=== PATIENT | male | born 1945 | race Caucasian/White ===

== ENCOUNTER 2019-01-07 15:40 | Inpatient (IN) | payer MEDICARE, BC ==
[~2019-01-07] VITALS: Ht 170.2 cm; Wt 74.3 kg
[~2019-01-07 15:40] MED LIST: LISI5 PO; NEBI5 PO; Vitamin C60 MG PO
[2019-01-07] MEDS ORDERED: SERT50 PO (16:38)
[2019-01-07] MEDS ORDERED: Hydrocodone-Ap1 EA20 PO (16:38)
[2019-01-07] MEDS ORDERED: ATOR80 PO (16:39)
[2019-01-07] MEDS ORDERED: METOPROLOL SUCC25 MG PO (16:39)
[2019-01-07] MEDS ORDERED: RANOLAZINE ER1000 MG PO (16:40)
[2019-01-07] MEDS ORDERED: ALLO100 PO (16:41)
[2019-01-07 17:44] LABS: BASOPHILS ABSOLUTE AUTO 0.02 K/mm3 (0.00-0.23); BASOPHILS PERCENT AUTO 0 % (0-2); EOSINOPHILS ABSOLUTE AUTO 0.02 K/mm3 (0.00-0.68); EOSINOPHILS PERCENT AUTO 0 % (0-6); Hematocrit 33.2 % (37.0-53.0); IMMATURE GRAN ABSOLUTE AUTO 0.06 K/mm3 (0.00-0.10); IMMATURE GRAN PERCENT AUTO 1 % (0-1); LYMPHOCYTES ABSOLUTE AUTO 0.85 K/mm3 (0.84-5.20); LYMPHOCYTES PERCENT AUTO 12 % (21-46); MONOCYTES PERCENT AUTO 8 % (4-13); Mean Corpuscular HGB 32.9 pg (26.0-34.0); Mean Corpuscular HGB Conc 33.1 g/dL (31.5-36.5); Mean Corpuscular Volume 99 fL (80-100); Mean Platelet Volume 10.6 fL (9.1-12.4); NEUTROPHILS ABSOLUTE AUTO 5.76 K/mm3 (1.96-9.15); NEUTROPHILS PERCENT AUTO 79 % (41-73); Platelet Count 174 K/mm3 (150-400); RDW Coefficient Variation 13.6 % (11.7-14.2); RDW Standard Deviation 49.1 fL (35.1-46.3); Red Blood Cell Count 3.34 M/mm3 (4.30-5.90); White Blood Cell Count 7.31 K/mm3 (4.00-11.30)
[2019-01-07] MEDS ORDERED: OMEP20ER PO (17:48)
[2019-01-07] MEDS ORDERED: ASPI325 PO (17:48)
[2019-01-07] MEDS ORDERED: ASCO500 PO (17:49)
[2019-01-07] MEDS ORDERED: MAGNESIUM250 MG PO (17:52)
[2019-01-07] MEDS ORDERED: Elemental Calc600 MG PO (17:52)
[2019-01-07] MEDS ORDERED: THERA1 EACH PO (17:53)
[2019-01-07 17:59] LABS: International Normalized Ratio 1.07; Prothrombin Time Results 11.3 Sec (9.7-11.5)
[2019-01-07 18:12] LABS: Alanine Aminotransfer (ALT/SGP 28 U/L (12-78); Albumin, Blood 3.5 g/dL (3.4-5.0); Albumin/Globulin Ratio 1.2 (0.8-1.8); Alk Phos 90 U/L (50-136); Anion Gap 7 mmol/L (6-16); Aspartate Aminotrans (AST/SGOT 29 U/L (12-37); Bilirubin, Total 0.9 mg/dL (0.1-1.0); Blood Urea Nitrogen 16 mg/dL (8-24); Bun/Creatinine Ratio 14.2 (12.0-20.0); CO2, Blood 29 mmol/L (21-32); Calcium, Blood 9.2 mg/dL (8.5-10.1); Chloride, Blood 101 mmol/L (98-108); Creatinine, Blood 1.13 mg/dL (0.60-1.20); Globulin, Blood 2.8 g/dL (2.2-4.0); Glomerular Filtration Rate >60 (60-); Glucose, Blood 132 mg/dL (70-99); Potassium, Blood 4.1 mmol/L (3.5-5.5); Sodium, Blood 137 mmol/L (136-145); Total Protein, Blood 6.3 g/dL (6.4-8.2)
--- NOTE | 2019-01-07 19:10 | NUR ---
ADMIT NOTE RECEIVED REPORT FROM TITA PINEDA RN IN ED. PT TO ROOM AT 1835, SBA TRANSFER TO BED, PT SLIGHTLY UNSTEADY ON FEET. REPORTS HE RECENTLY FELL AT HOME. PT ORIENTED TO ROOM AND CALL LIGHT. EDUCATED ON FALL RISK AND TO USE CALL LIGHT PRIOR TO GETTING OUT OF BED. BED ALARM IN PLACE, BED IN LOW AND CALL LIGHT WITHIN REACH. PT A&Ox4. CALM AND COOPERATIVE WITH CARE. PT DENIES PAIN, CHEST PAIN OR DISCOMFORT, SOB, NAUSEA, DIZZINESS, NUM/TING. PT HAS NITRO PASTE/PATCH IN LEFT UPPER CHEST AND HEPARIN GOING WHICH PER PT WAS STARTED AT [facility], HEPARIN CHANGED OVER PER EMAR/ORDERS. TELE NSR/'S. VSS. NO OTHER ACUTE CHANGES NOTED. REPORT GIVEN TO ONCOMING RN.
[2019-01-07] MEDS ORDERED: Prinivil10 MG PO (20:57)
[2019-01-07] MEDS ORDERED: Isosorbide Mono30 MG PO (20:58)
[2019-01-07] MEDS ORDERED: PANT40 PO (20:59)
[2019-01-07] MEDS ORDERED: CELE100 PO (20:59)
[2019-01-07] MEDS ORDERED: NITR.4SL (21:00)
[2019-01-07] MEDS ORDERED: EPIPEN 2-P0.3 MG/0.3 (21:01)
[2019-01-07] MEDS ORDERED: RANO500T PO (21:03)
[2019-01-08 01:05] LABS: BASOPHILS ABSOLUTE AUTO 0.02 K/mm3 (0.00-0.23); BASOPHILS PERCENT AUTO 0 % (0-2); EOSINOPHILS ABSOLUTE AUTO 0.06 K/mm3 (0.00-0.68); EOSINOPHILS PERCENT AUTO 1 % (0-6); Hematocrit 32.6 % (37.0-53.0); Hemoglobin 10.7 g/dL (13.5-17.5); IMMATURE GRAN ABSOLUTE AUTO 0.04 K/mm3 (0.00-0.10); IMMATURE GRAN PERCENT AUTO 1 % (0-1); LYMPHOCYTES ABSOLUTE AUTO 0.76 K/mm3 (0.84-5.20); LYMPHOCYTES PERCENT AUTO 11 % (21-46); MONOCYTES ABSOLUTE AUTO 0.63 K/mm3 (0.16-1.47); MONOCYTES PERCENT AUTO 9 % (4-13); Mean Corpuscular HGB 32.2 pg (26.0-34.0); Mean Corpuscular HGB Conc 32.8 g/dL (31.5-36.5); Mean Corpuscular Volume 98 fL (80-100); Mean Platelet Volume 10.6 fL (9.1-12.4); NEUTROPHILS ABSOLUTE AUTO 5.66 K/mm3 (1.96-9.15); NEUTROPHILS PERCENT AUTO 79 % (41-73); Platelet Count 165 K/mm3 (150-400); RDW Coefficient Variation 13.7 % (11.7-14.2); RDW Standard Deviation 48.8 fL (35.1-46.3); Red Blood Cell Count 3.32 M/mm3 (4.30-5.90); White Blood Cell Count 7.17 K/mm3 (4.00-11.30)
[2019-01-08 01:21] LABS: Anion Gap 8 mmol/L (6-16); Blood Urea Nitrogen 16 mg/dL (8-24); Bun/Creatinine Ratio 14.3 (12.0-20.0); CO2, Blood 28 mmol/L (21-32); Calcium, Blood 8.8 mg/dL (8.5-10.1); Chloride, Blood 102 mmol/L (98-108); Creatinine, Blood 1.12 mg/dL (0.60-1.20); Glomerular Filtration Rate >60 (60-); Glucose, Blood 130 mg/dL (70-99); Potassium, Blood 3.8 mmol/L (3.5-5.5); Sodium, Blood 138 mmol/L (136-145)
--- NOTE | 2019-01-08 04:45 | NUR ---
SHIFT SUMMARY: PATIENT SLEPT WELL THIS SHIFT AFTER AMBIEN PER MD ORDERS. VSS, CALL LIGHT WITHIN REACH, BED LOW AND LOCKED AND PATIENT COMPLIANT WITH CARE.
--- NOTE | 2019-01-08 07:17 | NUR ---
Heparin Drip verified at the bedside compared with eMAR with Gayathri Silvestre RN. Pt denies chest discomfort, or other pain/discomfort. Sitting up in bed, no evidence of distress, dyspnea, anxiety or pain.
--- NOTE | 2019-01-08 10:12 | NUR ---
titration of heparin dose at this time.
--- NOTE | 2019-01-08 12:05 | NUR ---
the pt returned from the lab[employer], report was received from [address]. Vital signs are stable, and left TR band site appears without any bleeding, bruising, swelling, or hematoma. The distal pulse is palpable, and spo2 measured on the index finger of the left hand is 92%, compared with 97% on the right. The pt is a bit sleepy. Respirations are even and unlabored, and he has no complaints of pain. The pt verbalized understanding of not using the left arm for anything at this time. White immobilizer board is in place.
--- NOTE | 2019-01-08 14:38 | NUR ---
2 cc of air deflated from the TR band. With each vital sign check recorded the arm was verified and assesed that there was no bleeding, bruising, hematoma, swelling or pain. The pt states it feels fine, and the site remains unchanged from prior assessments.
--- NOTE | 2019-01-08 15:06 | NUR ---
total of 5 cc of air has been removed so far, with no change to the left radial artery access site.
[2019-01-08] MEDS ORDERED: ASPI81CH PO (15:55)
[2019-01-08] MEDS ORDERED: CLOP75 PO (15:56)
== END 2019-01-08 17:10 | disposition home or self-care (01) | DRG 282 ==
LOC: ER 15:40 → PCU 15:41
PROVIDERS: Emergency Medicine; ADMIT Internal Medicine
PROC: B2111ZZ Fluoroscopy of Multiple Coronary Arteries using Low Osmolar Contrast (ICD-10-PCS; principal; 2019-01-08)
DX: I21.4 Non-ST elevation (NSTEMI) myocardial infarction (principal); I25.10 Atherosclerotic heart disease of native coronary artery without angina pectoris; I73.9 Peripheral vascular disease, unspecified; E78.5 Hyperlipidemia, unspecified; I10 Essential (primary) hypertension; F32.9 Major depressive disorder, single episode, unspecified; I65.29 Occlusion and stenosis of unspecified carotid artery; I71.4 Abdominal aortic aneurysm, without rupture; M10.9 Gout, unspecified; Z95.5 Presence of coronary angioplasty implant and graft; Z95.1 Presence of aortocoronary bypass graft; Z87.891 Personal history of nicotine dependence; Z79.82 Long term (current) use of aspirin; Z79.899 Other long term (current) drug therapy
CPT/HCPCS: 36415; 80048; 80053; 84484; 85025; 85610; 85730; 93005; 93010; 93306; 93455; 96374; 96376; 99152; 99153; 99285-25; C1769; C1894; G0378; J1644; J2250; J3010; J7030; Q9967

== ENCOUNTER 2022-03-29 23:47 | Inpatient (IN) | payer BC ==
[~2022-03-29] VITALS: Wt 60.5 kg
[~2022-03-29 23:47] MED LIST changes: +ALLO100 PO; +ASCO500 PO; +ASPI325 PO; +ASPI81CH PO; +ATOR80 PO; +CELE100 PO; +CLOP75 PO; +EPIPEN 2-P0.3 MG/0.3; +Elemental Calc600 MG PO; +Hydrocodone-Ap1 EA20 PO; +Isosorbide Mono30 MG PO; +MAGNESIUM250 MG PO; +METOPROLOL SUCC25 MG PO; +NITR.4SL; +OMEP20ER PO; +PANT40 PO; +Prinivil10 MG PO; +RANO500T PO; +RANOLAZINE ER500 M2 PO; +SERT50 PO; +THERA1 EACH PO
[2022-03-30 05:39] LABS: Base Excess Venous -0.6 mmol/L; Bicarbonate Venous 22.9 mmol/L (24.0-30.0); PCO2 Venous 39.9 mmHg (38-42); pH Blood Venous 7.39 (7.34-7.37)
[2022-03-30 05:50] LABS: BASOPHILS ABSOLUTE AUTO 0.03 K/mm3 (0.00-0.23); BASOPHILS PERCENT AUTO 0 % (0-2); EOSINOPHILS ABSOLUTE AUTO 0.16 K/mm3 (0.00-0.68); EOSINOPHILS PERCENT AUTO 1 % (0-6); Hematocrit 34.1 % (37.0-53.0); Hemoglobin 10.9 g/dL (13.5-17.5); IMMATURE GRAN ABSOLUTE AUTO 0.03 K/mm3 (0.00-0.10); IMMATURE GRAN PERCENT AUTO 0 % (0-1); LYMPHOCYTES ABSOLUTE AUTO 0.54 K/mm3 (0.84-5.20); LYMPHOCYTES PERCENT AUTO 5 % (21-46); MONOCYTES ABSOLUTE AUTO 0.92 K/mm3 (0.16-1.47); MONOCYTES PERCENT AUTO 8 % (4-13); Mean Corpuscular Volume 94 fL (80-100); Mean Platelet Volume 10.9 fL (9.1-12.4); NEUTROPHILS ABSOLUTE AUTO 10.26 K/mm3 (1.96-9.15); NEUTROPHILS PERCENT AUTO 86 % (41-73); Platelet Count 223 K/mm3 (150-400); RDW Coefficient Variation 13.6 % (11.7-14.2); RDW Standard Deviation 47.3 fL (35.1-46.3); Red Blood Cell Count 3.63 M/mm3 (4.30-5.90); White Blood Cell Count 11.94 K/mm3 (4.00-11.30)
[2022-03-30 06:38] LABS: Albumin, Blood 3.6 g/dL (3.4-5.0); Albumin/Globulin Ratio 1.2 (0.8-1.8); Bilirubin, Total 0.7 mg/dL (0.1-1.0); Bun/Creatinine Ratio 13.8 (12.0-20.0); Calcium, Blood 8.8 mg/dL (8.5-10.1); Creatinine, Blood 1.23 mg/dL (0.60-1.20); Globulin, Blood 2.9 g/dL (2.2-4.0); Potassium, Blood 3.4 mmol/L (3.5-5.5); Thyroid Stimulating Hormone 2.24 uIU/mL (0.360-4.800); Total Protein, Blood 6.5 g/dL (6.4-8.2)
--- NOTE | 2022-03-30 06:42 | NUR ---
SHIFT SUMMARY PT WAS A DIRECT ADMIT FROM [place] FOR CHF AND RESP FAILURE. ON ARRIVAL THE PT WAS FAIRLY SOMULENT AND WAS NOT ABLE TO ANSWER HX QUESTIONS. HE IS ON THE BIPAP W/ SP02 > 95%, AND HIS HR IS 90'S-110'S AFIB. A BEDSIDE SWALLOW EVALUATION WAS DONE, AND THE PATIENT BEGAN COUGHING AFTER THE EVALUATION. WHEN AYLIN DEVINE ASKED IF IS WENT DOWN THE WRONG PIPE, HE STATED "SOMETHING DID" WHILE COUGHING. NOTIFIED AND A SPEECH EVALUATION WAS ORDERED. PT HAS BED IN LOW, THREE SIDE RAILS UP, AND HAS CALL LIGHT IN REACH. WILL CONTINUE TO MONITOR UNTIL SHIFT REPORT IS GIVEN TO THE ONCOMING SHIFT RN. SEE NOTES FOR ANY UPDATES.
--- NOTE | 2022-03-30 18:33 | NUR ---
END OF SHIFT SUMMARY A/O X2. PT IS VERY HARD TO UNDERSTAND DUE TO SLURRED SPEACH. NPO STATUS HELD ALL DAY EXCEPT FOR MEDICATIONS IN APPLESAUCE DUE TO FAILED SWALLOW TESTING. THIN LIQUIDS SPECIFICALLY. PT HAS WET COURSE SOUNDING LUNGS WITH CONGESTION HEARD STANDING AT BEDSIDE. O2 SATS AT 97 ON NC 4L. ORAL CARE ATTEMPTED SEVERAL TIMES TODAY BEFORE MEDICATIONS GIVEN. PT SPOUSE REPORTS THAT PT HAS LOST AROUND 10 LBS OVER A MONTH TIME DUE TO POOR APPETITE. PT IS UNABLE TO STAND FOR SHORT PERIODS OF TIME. BASELINE AT HOME IS TRANSFERS FROM WHEELCHAIR TO BED, CHAIR, TOILET, ETC. PT SLEPT MOST OF THE DAY AND STATES THAT HE DID NOT REST LASTNIGHT OR YESTERDAY AT ALL. PT SPOUSE IN ROOM MOST OF THE DAY AND IS STAYING IN A MOTEL NEARBY. WILL CONTINUE TO MONITOR UNTIL SHIFT REPORT COMPLETE.
--- NOTE | 2022-03-31 06:03 | NUR ---
SHIFT SUMMARY A&Ox4, CALLS AND COMMUNICATES NEEDS APPROPRIATELY. PT's SPEECH IS CLEAR, TOLERATED MEDS CRUSHED IN APPLESAUCE. VSS, SpO2> 92% 2L VIA NC OR BIPAP WITH 2L BLEED IN. AFIB WITH BBB, 80-100's. PT ABLE TO VOID APPROPRIATELY IN URINAL WITH STAFF ASSISTANCE. PT STOOD AT BEDSIDE WITH 1 ASSIST AND FWW. NO OTHER EVENTS THIS SHIFT, WILL REPORT TO DAY SHIFT RN.
--- NOTE | 2022-03-31 17:14 | NUR ---
SHIFT SUMMARY PT REMAINS ALERT AND ORIENTED. PT TITRATED DOWN TO ROOM AIR THIS SHIFT. LS COARSE THROUGHOUT AND PT HAS FREQUENT LOOSE COUGH WITH NO PRODUCTION. ORAL CARE PROVIDED NEEDED. PT NOW ABLE TO DRINK WATER BY SPOON. PT INCONTINENT OF URINE THIS SHIFT AND ATTENDS IN PLACE. PT HAS DENIED PAIN THIS SHIFT. HR HAS BEEN AFIB 90'S. AT BEDSIDE ALL SHIFT. WILL CONTINUE TO MONITOR AND REPORT TO ONCOMING RN.
--- NOTE | 2022-04-01 03:40 | NUR ---
UPDATE CALL TO DR. TURNER REGARDING SOFT BP's, PT IS ASYMPTOMATIC. NO NEW ORDERS AT THIS TIME.
[2022-04-01 04:24] LABS: BASOPHILS ABSOLUTE AUTO 0.05 K/mm3 (0.00-0.23); BASOPHILS PERCENT AUTO 1 % (0-2); EOSINOPHILS ABSOLUTE AUTO 0.76 K/mm3 (0.00-0.68); EOSINOPHILS PERCENT AUTO 9 % (0-6); Hematocrit 33.7 % (37.0-53.0); Hemoglobin 11.1 g/dL (13.5-17.5); IMMATURE GRAN ABSOLUTE AUTO 0.02 K/mm3 (0.00-0.10); IMMATURE GRAN PERCENT AUTO 0 % (0-1); LYMPHOCYTES ABSOLUTE AUTO 0.75 K/mm3 (0.84-5.20); LYMPHOCYTES PERCENT AUTO 9 % (21-46); MONOCYTES ABSOLUTE AUTO 0.84 K/mm3 (0.16-1.47); MONOCYTES PERCENT AUTO 10 % (4-13); Mean Corpuscular HGB 29.7 pg (26.0-34.0); Mean Corpuscular HGB Conc 32.9 g/dL (31.5-36.5); Mean Corpuscular Volume 90 fL (80-100); Mean Platelet Volume 10.9 fL (9.1-12.4); NEUTROPHILS ABSOLUTE AUTO 5.99 K/mm3 (1.96-9.15); NEUTROPHILS PERCENT AUTO 71 % (41-73); Platelet Count 225 K/mm3 (150-400); RDW Coefficient Variation 13.6 % (11.7-14.2); RDW Standard Deviation 44.7 fL (35.1-46.3); Red Blood Cell Count 3.74 M/mm3 (4.30-5.90); White Blood Cell Count 8.41 K/mm3 (4.00-11.30)
[2022-04-01 04:45] LABS: Bun/Creatinine Ratio 16.2 (12.0-20.0); Calcium, Blood 8.7 mg/dL (8.5-10.1); Creatinine, Blood 1.36 mg/dL (0.60-1.20); Magnesium, Blood 1.3 mg/dL (1.6-2.4); Potassium, Blood 3.1 mmol/L (3.5-5.5)
--- NOTE | 2022-04-01 05:18 | NUR ---
SHIFT SUMMARY PT A&Ox4, COMMUNICATES NEEDS APPROPRIATELY. SpO2> 92% RA, AFIB 90's. BP SOFT WITH SBP 77-90's, MAP REMAINED >64, PT ASYMPTOMATIC, SEE UPDATE NOTE. ORAL CARE PROVIDED NEEDED. PT WITH TWO INCONTINENT VOIDS THIS SHIFT, ATTENDS IN PLACE. DENIES SOB, CP/PRESSURE. PT WITH BACK/NECK PAIN AT START OF SHIFT MEDICATED PER EMAR, PAIN IS NOW RESOLVED. NO OTHER EVENTS, WILL REPORT TO DAY SHIFT RN.
[2022-04-01] MEDS ORDERED: FURO20 PO (07:29)
[2022-04-01] MEDS ORDERED: METO25 PO (07:31)
[2022-04-01] MEDS ORDERED: SPIR25 PO (07:32)
--- NOTE | 2022-04-01 13:00 | NUR ---
UPDATE PT AND PROVIDED DC INSTRUCTIONS AND NEW MEDICATIONS. PT EDUCATED ON ALL MEDICATIONS AND CHANGES. ALL QUESTIONS ANSWERED. MEDICATIONS CALLED IN TO [facility] IN [place]. TO DRESSED AND TAKEN OUT BY WC WITH ALL OF HIS BELONGINGS.
[2022-04-01] MEDS ORDERED: METO25ER PO (13:24)
[2022-04-01] MEDS ORDERED: LEVE500 PO (13:24)
[2022-04-01] MEDS ORDERED: JARDIANCE10 MG PO (13:25)
[2022-04-01] MEDS ORDERED: FAMO20 PO (13:27)
[2022-04-01] MEDS ORDERED: FURO40 PO (13:39)
== END 2022-04-01 13:41 | disposition home or self-care (01) | DRG 291 ==
LOC: PCU 23:47
PROVIDERS: Family Medicine; Student in an Organized Health Care Education/Training Program; ADMIT Internal Medicine
PROC: 5A09357 Assistance with Respiratory Ventilation, Less than 24 Consecutive Hours, Continuous Positive Airway Pressure (ICD-10-PCS; principal; 2022-03-30)
DX: I11.0 Hypertensive heart disease with heart failure (principal); I50.23 Acute on chronic systolic (congestive) heart failure; J96.01 Acute respiratory failure with hypoxia; I48.91 Unspecified atrial fibrillation; E78.5 Hyperlipidemia, unspecified; F32.A Depression, unspecified; I73.9 Peripheral vascular disease, unspecified; M10.9 Gout, unspecified; R13.10 Dysphagia, unspecified; G40.909 Epilepsy, unspecified, not intractable, without status epilepticus; I25.118 Atherosclerotic heart disease of native coronary artery with other forms of angina pectoris; K21.9 Gastro-esophageal reflux disease without esophagitis; Z95.1 Presence of aortocoronary bypass graft; Z98.890 Other specified postprocedural states; Z87.891 Personal history of nicotine dependence; Z91.030 Bee allergy status; Z79.899 Other long term (current) drug therapy
CPT/HCPCS: 36415; 71045; 80048; 80053; 82803; 83735; 83880; 84443; 84484; 85025; 92526; 92610; 93005; 93010; 93306; 94660; 94761; 94762; 97110; 97162; 97166; 97530; A9270; J1940